=== PATIENT | female | born 1960 | race Caucasian/White ===

== ENCOUNTER 2017-10-17 03:07 | Emergency (ER) | payer OTHER ==
--- OUTSIDE RECORDS SUMMARY | 2017-10-17 03:20 | XMS REPORT ---
:1960 External Reference #:[id number] Author Organization [facility] Address [address] [place] [address] Phone [phone] Care Team Providers Name Role Phone Binta Barrios M.D. Care Team Information University Controller Unavailable Binta Barrios M.D. Primary Care Physician Unavailable Payers Type Date Identification Numbers Payment Subscriber Provider Health Maintenance Effective: Policy Number: [employer] Nap Ann Anaya Organization (O) 05/16/2016 [id number] Pre-Medicare Group Number: [id number] [address] PayID: [id number] [place] [address] Problems Date Description Provider Status Onset: 12/20/2011 Degenerative joint disease of Lisset Jarrell M.D. Active ankle AND/OR foot Onset: 12/20/2011 Hyperlipidemia Lisset Jarrell M.D. Active Onset: 12/20/2011 Tobacco user Lisset Jarrell M.D. Active Onset: 12/20/2011 Uterine leiomyoma Lisset Jarrell M.D. Active Onset: 09/20/2017 Generalized anxiety disorder Binta Barrios M.D. Active Onset: 12/20/2011 Adjustment disorder with Lisset Jarrell M.D. Resolved depressed mood Resolved: 02/19/2015 Family History Date Family Member(s) Problem(s) Comments Father Prostate Disease Father due to IA () Father Coronary Artery Disease (CAD) Father Kidney Disease Father Dementia Father Chronic Obstructive Pulmonary Disease (COPD) Mother due to Lung Cancer () Number of Children 1 child whom she gave up for adoption in the 1970s First Brother Mentally Handicapped First Brother Alcoholism Social History Type Date Description Comments Marital Status Patient is single. Male partner 2009 from multiple medical comorbidities. 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 day as needed Omeprazole Active Capsules DR 40mg 30caps take 1 R12 Binta 018 capsule Denis, by mouth M.D. every morning, 30 minutes before meal Bupropion HCL Active Tablets ER 300mg 30tabs 1 by F41.1 Binta ER (XL) 017 24HR mouth Denis, every day M.DChata F17.210 Aspirin 07/27/[address] 81mg 1 by mouth Unknown every day Valacyclovir HCL Active Tablets 500mg 30ta 1 by mouth Binta bs every day Teodora Barrios Probiotic Active Capsules 250mg 1 by mouth Unknown every day Bupropion HCL ER 12/23/2016 - Hx Tablets ER 150mg take one Leonardo1Chata Evans (SR) 12/23/2016 12HR tablet by 1 RENETTA Goddard mouth twice a day F17.210 Bupropion HCL 12/23/2016 - Hx Tablets ER 150mg 30tabs 1 by mouth F41.1 Binta ER (XL) 04/19/2017 24HR every day Teodora Barrios F17.210 Cyclobenzaprine 07/23/2016 - Hx Tablets 5mg 60tabs take 1 M54.5 Binta HCL 09/20/2017 tablet by Denis, mouth three M.D. times daily as needed Drysol 11/10/2015 - Hx Solution 20% 60ml apply to Chris AChata 06/17/2016 underarms Mika, as needed M.D. Lidocaine 09/08/2015 - Hx Patches 5% 30units apply to [facility] 09/20/2017 heel as [place], twice a M.D. 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 F17.210 Bupropion HCL 02/19/2015 - Hx Tablets ER 150mg 30tabs 1 by mouth F41.1 Binat ER (XL) 04/21/2015 24HR every day Teodora Barrios F17.210 Melatonin 12/27/2013 - Hx Tablets 1 by mouth qhs Unknown 09/20/2017 prn Senna S 12/28/2011 - Hx Tablets 8.6 1 by mouth Unknown 09/20/2017 -50 every day as mg needed Miralax 12/28/2011 - Hx Powder drink 17 grams Unknown 09/20/2017 mixed with 8oz of water qd prn Hydrocodone/Acetam 12/21/2011 - Hx Tablets 5-3 40tabs 1 tabs po q6h Lisset Burnett inophen 02/19/2015 25m as needed samuel Jarrell severe painTeodora caution to sedation/const ipation Multivitamins 12/20/2011 - Hx Tablets 1 po qd [facility] 02/19/2015 [facility] Calcium + D 12/20/2011 - Hx Tablets 120 1 po qd [facility] 02/19/2015 0mg Medicine /10 Associates 00[facility] g Hydrocodone/Acetam 12/20/2011 - Hx Tablets 5-5 45tabs 1-2 po q4h prn Lisset Burnett inophen 12/21/2011 00m samuel Jarrell M.D. Ibuprofen 01/04/2011 - Hx Tablets 800 60tabs 1 po q8 hours Anel Warner 02/19/2015 mg tid with food Teodora Dunaway Tylenol/Codeine #3 01/04/2011 - Hx Tablets 300 50tabs 1-2 po q hs as Cristina 12/20/2011 -30 needed for von Felten, mg pain M.DChata Hydrocodone 03/21/2010 - Hx Tablets 5-5 45tabs 1-2 po q4h prn Cristina Bitartrate/Apap 12/20/2011 00m samuel Levy M.D. Naproxen 03/21/2010 - Hx Tablets 500 40tabs 1 po bid prn Cristina 01/04/2011 mg pain kenya Vasquez M.D. Out Of Work Until 03/21/2010 - Hx out of work Geo F. 09/17/2010 until Teodora Luna 03/25/2010 Cyclobenzaprine 03/19/2010 - Hx Tablets 10m 60tabs 1 po bid. no 728 Anel L. HCL 09/17/2010 g [address] while .85 raquel Dunaway.Lex medicine. Physical Therapy 03/19/2010 - Hx evaluate/treat 728 Anel Warner 09/17/2010 .Billy Mi M.D. arm numbness and tingling. Massage Therapy 03/19/2010 - Hx bilateral 728 Anel Warner 09/17/2010 trapezius .85 ronaldo Dunaway. Teodora Note 01/14/2010 - Hx please issue Cristina 09/17/2010 Jaclyn Varghese M.D. handicap permit until her application is finalized due to foot and breathing prob Drysol 01/01/2010 - Hx Solution 20% 60ml apply to Lisset Burnett 02/19/2015 underarms as shraddha Jarrell M.D. Proair HFA 01/01/2010 - Hx Aerosol 108 1Mdi 2 puffs every Cristina 12/20/2011 (90 4 hours as Gabriela Levy needed for M.DChata e) cough mcg /ac Celexa 01/01/2010 - Hx Tablets 10m 30tabs 1 po qd Cristina 04/03/2010 samuel Levy M.D. Clonazepam 09/25/2009 - Hx Tablets 0.5 20tabs 1-2 po bid as Cristina 04/03/2010 mg needed kenya Vasquez M.D. Protonix 09/09/2008 - Hx Tablets DR 40m Samples 1 po qd Cristina 09/15/2009 samuel Levy M.D. Baby Aspirin 05/22/2008 - Hx Chewtabs 81m 1 PO qd Cristina 09/15/2009 samuel Levy M.D. Wellbutrin XL 05/22/2008 - Hx Tablets ER 150 30tabs 1 po qd Cristina 12/20/2011 24HR mg kenya Vasquez M.D. Vitamin D - Hx Capsules 500 take 1 capsule Unknown (Ergocalciferol) 06/17/2016 00U by mouth once nit weekly for 8 weeks. Alprazolam - Hx Tablets 0.2 1/2 tabs by Unknown 06/17/2016 5mg mouth three times a day as needed anxiety- Dr. Zelaya Ibuprofen - Hx Tablets 800 1 tab by mouth Unknown 09/20/2017 mg every 6 hours as needed pain. take with food Proair HFA - Hx Aerosol 108 2 puffs every Unknown 09/20/2017 (90 4 hours as Bas needed e) mcg /Ac t Amoxicillin - Hx Tablets 500 1 po qid Unknown 07/23/2016 mg Medications Administered in Office Medication Date Status Form Strength Qnty SIG Indications Ordering Provider TB Intradermal Administered Injection Binta Test 016 Teodora Barrios TB Intradermal Administered Injection Unknown Test 007 Immunizations CPT Code Status Date Vaccine Lot # 35776 Given 02/26/2008 DO Not Use Split Influenza Virus Vaccine 36159 Given 12/27/2003 Tdap Tetanus, W Pertussis 92019 Given Unknown Rubella Immunization 02636 Given Unknown Measles Immunization 56697 Given Unknown Mumps Immunization Vital Signs Date Vital Result Comment 09/20/2017 BP Systolic 102 mmHg BP Diastolic 64 mmHg Heart Rate 96 /min Body Temperature 98.2 F Height 60.5 inches 5'0.50" Weight 119.00 lb BMI (Body Mass Index) 22.9 kg/m2 03/30/2017 BP Systolic 100 mmHg BP Diastolic 60 mmHg Heart Rate 80 /min Body Temperature 97.5 F Height 60.5 inches 5'0.50" Weight 125.25 lb BMI (Body Mass Index) 24.1 kg/m2 02/21/2017 BP Systolic 118 mmHg BP Diastolic 68 mmHg Heart Rate 74 /min Body Temperature 97.3 F Height 60.5 inches 5'0.50" Weight 129.38 lb BMI (Body Mass Index) 24.8 kg/m2 12/27/2016 BP Systolic 110 mmHg BP Diastolic 68 mmHg Heart Rate 78 /min Body Temperature 96.4 F Respiratory Rate 16 /min Height 60.5 inches 5'0.50" Weight 135.00 lb BMI (Body Mass Index) 25.9 kg/m2 07/23/2016 BP Systolic 122 mmHg BP Diastolic 76 mmHg Heart Rate 76 /min Body Temperature 98.1 F Respiratory Rate 16 /min Height 60.5 inches 5'0.50" Weight 143.00 lb BMI (Body Mass Index) 27.5 kg/m2 06/17/2016 BP Systolic 110 mmHg BP Diastolic 80 mmHg Heart Rate 76 /min Body Temperature 97.9 F Respiratory Rate 12 /min Height 60.5 inches 5'0.50" Weight 143.00 lb BMI (Body Mass Index) 27.5 kg/m2 09/04/2015 BP Systolic 110 mmHg BP Diastolic 64 mmHg Heart Rate 72 /min Body Temperature 98.0 F Respiratory Rate 16 /min Height 60.5 inches 5'0.50" Weight 157.00 lb BMI (Body Mass Index) 30.2 kg/m2 04/21/2015 BP Systolic 110 mmHg BP Diastolic 60 mmHg Heart Rate 76 /min Respiratory Rate 16 /min Height 60.5 inches 5'0.50" Weight 153.00 lb BMI (Body Mass Index) 29.4 kg/m2 02/19/2015 Heart Rate 66 /min Body Temperature 97.9 F Respiratory Rate 16 /min Height 60.5 inches 5'0.50" Weight 153.38 lb BMI (Body Mass Index) 29.5 kg/m2 12/20/2011 BP Systolic 124 mmHg BP Diastolic 66 mmHg Heart Rate 90 /min Body Temperature 99.0 F Height 60 inches 5'0" Weight 147.00 lb BMI (Body Mass Index) 28.7 kg/m2 01/04/2011 BP Systolic 110 mmHg BP Diastolic 60 mmHg Heart Rate 76 /min Body Temperature 97.7 F Respiratory Rate 20 /min Height 60 inches 5'0" Weight 144.00 lb BMI (Body Mass Index) 28.1 kg/m2 09/17/2010 BP Systolic 94 mmHg BP Diastolic 60 mmHg Heart Rate 84 /min Height 60 inches 5'0" Weight 143.00 lb BMI (Body Mass Index) 27.9 kg/m2 04/03/2010 BP Systolic 122 mmHg BP Diastolic 60 mmHg Heart Rate 84 /min Height 60 inches 5'0" Weight 142.00 lb BMI (Body Mass Index) 27.7 kg/m2 03/21/2010 BP Systolic 122 mmHg BP Diastolic 64 mmHg Heart Rate 96 /min Height 60 inches 5'0" Weight 145.00 lb BMI (Body Mass Index) 28.3 kg/m2 03/19/2010 BP Systolic 120 mmHg BP Diastolic 70 mmHg Heart Rate 72 /min Height 60 inches 5'0" Weight 145.00 lb BMI (Body Mass Index) 28.3 kg/m2 01/01/2010 BP Systolic 122 mmHg BP Diastolic 64 mmHg Heart Rate 72 /min Height 60 inches 5'0" Weight 147.00 lb BMI (Body Mass Index) 28.7 kg/m2 09/15/2009 BP Systolic 114 mmHg BP Diastolic 60 mmHg Heart Rate 90 /min Body Temperature 98.8 F Height 60 inches 5'0" Weight 156.00 lb BMI (Body Mass Index) 30.5 kg/m2 02/17/2009 BP Systolic 110 mmHg BP Diastolic 60 mmHg Heart Rate 78 /min Body Temperature 98.4 F Height 60 inches 5'0" Weight 171.00 lb BMI (Body Mass Index) 33.4 kg/m2 09/09/2008 BP Systolic 122 mmHg BP Diastolic 60 mmHg Heart Rate 84 /min Body Temperature 99.3 F Height 60 inches 5'0" Weight 166.00 lb BMI (Body Mass Index) 32.4 kg/m2 05/22/2008 BP Systolic 120 mmHg BP Diastolic 70 mmHg Heart Rate 80 /min Body Temperature 98.0 F Height 60 inches 5'0" Weight 168.00 lb BMI (Body Mass Index) 32.8 kg/m2 Results Test Date Test Result H/L Range Note Laboratory test finding 02/21/2017 Free T4 1.16 ng/dL 0.75-1.54 LDL, Direct 102 mg/dL 0-130 Complete Blood Count 02/21/2017 WBC 7.0 x10^3/UL 3.6-9.6 RBC 4.70 x10^6/UL 3.90-5.70 HGB 14.3 g/dL 12.1-17.2 HCT 42 % 36-50 MCV 89.0 fL 82.2-97.4 MCH 30.5 pg 27.6-33.3 MCHC 34.2 g/dL 33.0-35.5 RDW 13.6 % 11.6-13.7 PLT 288 x10^3/UL 150-400 MPV 7.6 fL 7.4-10.4 Gran # 5.2 x10^3/UL 1.5-7.2 Lymph# 1.5 x10^3/UL 0.7-4.9 Christian# 0.3 x10^3/UL 0.1-0.9 Gran % 72.4 % 42.2-75.2 Lymph % 22.3 % 20.5-51.1 Christian% 5.3 % 1.7-9.3 Laboratory test finding 02/21/2017 TSH 0.72 mIU/L 0.50-6.00 Comprehensive Metabolic Prof 02/21/2017 Sodium 144 mEq/L 134-149 Potassium 3.9 mEq/L 3.6-5.5 Chloride 105 mEq/L 94-112 Carbon Dioxide 29 mEq/L 21-32 Glucose 112 mg/dL High 70-105 1 BUN 12 mg/dL 6-26 Creatinine 0.8 mg/dL 0.6-1.4 BUN/Creat Ratio 15.0 CALC 8.0-36.0 Calcium 9.6 mg/dL 8.6-10.2 Total Protein 6.9 g/dL 6.4-8.3 Albumin 4.7 g/dL 3.8-5.5 Globulin 2.2 g/dL 2.0-4.8 A/G Ratio 2.1 CALC 0.6-2.3 Alk. Phosphatase 77 U/L 30-110 Alt (SGPT) 11 U/L 7-35 Ast (Sgot) 18 U/L 5-34 Total Bilirubin 0.5 mg/dL 0.2-1.3 GFR Non- >60 ml/min/1.73m^ >=60 GFR >60 ml/min/1.73m^ >=60 Lipid Profile 02/21/2017 Cholesterol 232 mg/dL High 120-200 Triglycerides 295 mg/dL High 30-200 HDL Cholesterol 78 mg/dL 30-85 LDL (Calculated) 95 CALC 0-129 VLDL Cholesterol 59 mg/dL High 0-50 HDL Risk Factor 3.0 CALC 0.0-4.4 Laboratory test finding 02/21/2017 Hemoglobin A1c (Fma) 5.2 % 4.1-5.7 Laboratory test finding 12/27/2016 HCV Antibody <0.1 0.0-0.9 2, 3 s/coratio Comprehensive Metabolic 06/04/2016 Sodium 140 mEq/L 134-149 Prof Potassium 4.6 mEq/L 3.6-5.5 Chloride 112 mEq/L 94-112 Carbon Dioxide 24 mEq/L 21-32 Glucose 103 mg/dL 70-105 BUN 12 mg/dL 6-26 Creatinine 0.8 mg/dL 0.6-1.4 BUN/Creat Ratio 15.0 CALC 8.0-36.0 Calcium 9.7 mg/dL 8.6-10.2 Total Protein 6.8 g/dL 6.4-8.3 Albumin 4.3 g/dL 3.8-5.5 Globulin 2.5 g/dL 2.0-4.8 A/G Ratio 1.7 CALC 0.6-2.3 Alk. Phosphatase 86 U/L 30-110 Alt (SGPT) 13 U/L 7-35 Ast (Sgot) 17 U/L 5-34 Total Bilirubin 0.7 mg/dL 0.2-1.3 GFR Non- >60 ml/min/1.73m^ >=60 GFR >60 ml/min/1.73m^ >=60 Lipid Profile 06/04/2016 Cholesterol 247 mg/dL High 120-200 Triglycerides 149 mg/dL 30-200 HDL Cholesterol 78 mg/dL 30-85 LDL (Calculated) 139 CALC High 0-129 VLDL Cholesterol 30 mg/dL 0-50 HDL Risk Factor 3.2 CALC 0.0-4.4 Complete Blood Count 06/04/2016 WBC 4.6 x10^3/UL 3.6-9.6 RBC 4.75 x10^6/UL 3.90-5.70 HGB 14.2 g/dL 12.1-17.2 HCT 42 % 36-50 MCV 89.0 fL 82.2-97.4 MCH 29.9 pg 27.6-33.3 MCHC 33.8 g/dL 33.0-35.5 RDW 13.7 % 11.6-13.7 PLT 250 x10^3/UL 150-400 MPV 7.2 fL Low 7.4-10.4 Gran # 3.2 x10^3/UL 1.5-7.2 Lymph# 1.2 x10^3/UL 0.7-4.9 Christian# 0.2 x10^3/UL 0.1-0.9 Gran % 67.5 % 42.2-75.2 Lymph % 27.8 % 20.5-51.1 Christian% 4.7 % 1.7-9.3 Laboratory test finding 06/04/2016 TSH 1.82 mIU/L 0.50-6.00 4 Laboratory test finding 04/21/2015 Vitamin D25 49 30-100 Laboratory test finding 09/27/2011 [facility] Lab Test VIT D, 25 HYDRO See Image Report Laboratory test finding 07/13/2011 [facility] Lab Test gfr,vit d,tsh,bun,creat ,phos,ca+,pth inta Comprehensive Metabolic 09/17/2010 Albumin 4.7 g/dL 3.8-5.5 Prof Alk. Phos. 75 U/L 30-110 Alt (SGPT) 8 U/L 7-35 Ast (Sgot) 13 U/L 5-34 BUN 15 mg/dL 6-26 Calcium 9.8 mg/dL 8.6-10.2 Chloride 98 mEq/L 94-112 Creatinine 0.8 mg/dL 0.6-1.4 Carbon Dioxide 30 mEq/L 21-32 Glucose 103 mg/dL 70-105 Sodium 140 mEq/L 134-149 Total Bilirubin 0.6 mg/dL 0.2-1.3 Total Protein 7.2 g/dL 6.3-8.1 Potassium 5.2 mEq/L 3.6-5.5 Globulin 2.5 g/dL 2.0-4.8 A/G Ratio 1.9 Calc 0.6-2.2 BUN/Creat Ratio 18.5 Calc 8.0-36.0 Lipid Profile 09/17/2010 Cholesterol 244 mg/dL High 120-200 HDL 77 mg/dL 30-85 Triglycerides 134 mg/dL 30-200 HDL Risk Factor 3.2 CALC 0.0-4.0 LDL (Calculated) 140 CALC High 0-129 VLDL (Calculated) 27 mg/dL 0-50 Laboratory test 09/17/2010 TSH 0.94 mIU/L 0.50-6.00 finding Laboratory test 11/04/2008 Clotest N^NEGATIVE^KELLY finding Surgical Pathology 11/04/2008 Surgical Pathology 5 <SEE NOTE> Anti Thyroid 09/09/2008 Anti Thyroglobulin AB <20.0 IU/mL 0.0-40.0 Antibodies (CX) Thyroid Peroxidase AB <10.00 IU/mL 0.00-35.00 Laboratory test finding 09/09/2008 TSH 2.63 mIU/L 0.50-6.00 Iron 56 g/dL Low 60-150 6 B12 240 pg/mL 230-1050 Complete Blood Count 09/09/2008 WBC 8.0 x10^3/uL 3.6-9.6 Gran# 6.1 x10^3/uL 1.5-7.2 Gran% 76.4 % High 42.2-75.2 HCT 43 % 36-50 HGB 14.4 g/dL 12.1-17.2 Lymph# 1.7 x10^3/uL 0.7-4.9 Lymph% 21.8 % 20.5-51.1 MCH 27.4 pg Low 27.6-33.3 MCV 81.8 fL Low 82.2-97.4 MCHC 33.5 g/dL 33.0-35.5 Mo# 0.1 x10^3/uL 0.1-0.9 Mo% 1.8 % 1.7-9.3 MPV 8.1 fL 7.4-10.4 PLT 299 x10^3/uL 150-400 RBC 5.25 x10^6/uL 3.90-5.70 RDW 13.2 % 11.6-13.7 Comprehensive Metabolic Prof 09/09/2008 Albumin 4.4 g/dL 3.8-5.5 Alk. Phos. 92 U/L 30-110 Alt (SGPT) 16 U/L 7-35 Ast (Sgot) 21 U/L 5-34 BUN 10 mg/dL 6-26 Calcium 8.6 mg/dL 8.6-10.2 Chloride 98 mEq/L 94-112 Creatinine 0.8 mg/dL 0.6-1.4 Carbon Dioxide 27 mEq/L 21-32 Glucose 97 mg/dL 70-105 Sodium 139 mEq/L 134-149 Total Bilirubin 0.5 mg/dL 0.2-1.3 Total Protein 7.0 g/dL 6.3-8.1 Potassium 3.8 mEq/L 3.6-5.5 Globulin 2.7 g/dL 2.0-4.8 A/G Ratio 1.6 Calc 0.6-2.2 BUN/Creat Ratio 13.1 Calc 8.0-36.0 Laboratory test finding 05/17/2006 [facility] LIPID PANEL See Image Report 1 NON-FASTING 2 1sst 3 Negative: < 0.8 Indeterminate: 0.8 - 0.9 Positive: > 0.9 The CDC recommends that a positive HCV antibody result be followed up with a HCV Nucleic Acid Amplification test (648450). 4 FASTING 5 --- RUN DATE: 11/06/08 [facility] NMI LIVE PAGE 1 RUN TIME: 1431 Specimen Inquiry RUN USER: INTERFACE -- Name: NALINISANTIAGOANN Status: REG REF Re11/04/08 Age/Sex: 47/F Unit#: [id number] Location: [facility] : 56 -- Specimen: [id number] Spec Date: 11/04/[address]: Jeffery gee MD Spec Type: SURGICAL P Received: 11/05/08-1152 Copies to: Cristina goldstein MD SPECIMEN DISTAL DESCENDING COLON AT 40 CM. HISTORY POST-OP DIAGNOSIS: Hiatal hernia otherwise normal EGD; colon polyp, singl e low risk otherwise normal colon and terminal ileum CLINICAL INFORMATION: Iron deficiency anemia, constipation GROSS DESCRIPTION The specimen is received in formalin labelled Ann Anaya, Distal Descending Colon at 40 cm., and consists of multiple fragments of munguia-yellow tissue with the largest one measuring 0.9 x 0.8 x 0.5 cm. Submitted entirely, one cassette. DIAGNOSIS Colon at 40 cm., biopsy: A. Fragments of tubular adenoma. B. No high grade dysplasia or malignancy. Signed Electronically by: MERCEDES GURROLA 11/06/08 1431 -- -- DEPARTMENT OF PATHOLOGY, [address] [place] [address] [facility] Permit #[id number] Betito Dean M.D. Director Mercedes Gurrola M.D. 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 11526 F41.1 E78.5 R63.4 F17.210 M54.5 Office Visit 02/21/2017 1:00p [facility] Office Binta Barrios M.D. 03724 F41.1 E78.5 R63.4 R23.8 E78.1 Office Visit 12/27/2016 5:00p Main Office Binta Barrios M.D. 42372 E78.5 F41.1 R92.2 Office Visit 07/23/2016 10:20a [facility] Binta Barrios M.D. 95191 M54.5 Office Visit 06/17/2016 5:00p Main Office Binta Barrios M.D. 00339 Z12.31 E78.5 F17.210 Z71.6 Z00.01 R21 M77.32 Office Visit 01/02/2016 2:30p [facility] Binta Barrios M.D. 81956 Z11.1 Office Visit 09/04/2015 3:10p [facility] Office Binta Barrios M.D. 69287 M77.32 F41.1 Z71.6 F17.210 Office Visit 04/21/2015 9:00a [facility] Binta Barrios M.D. 17232 E55.9 Z72.0 F41.1 Office Visit 02/19/2015 8:20a [facility] Binta Barrios M.D. 16163 Z00.00 E55.9 Z72.0 F41.1 Office Visit 12/20/2011 6:50p Main Office Lisset Jarrell M.D. 89353 309.0 715.97 272.4 305.1 218.9 Office Visit 01/04/2011 7:40p [facility] Office Cristina Levy M.D. 39458 719.45 311 300.09 Office Visit 09/17/2010 9:20a [facility] Cristina Levy M.D. 52040 311 723.1 496 V17.3 Office Visit 04/03/2010 4:20p [facility] Office Cristina Levy 67086 723.1 M.D. 311 Office Visit 03/21/2010 1:30p Main Office Geo Luna M.D. 75923 723.1 Office Visit 03/19/2010 3:20p [facility] Office Anel Dunaway M.D. 37043 728.85 Office Visit 01/01/2010 2:40p [facility] Office Cristina Levy 94412 496 Teodora 491.21 311 306.3 Office Visit 09/15/2009 8:30p [facility] Office Cristina Levy M.D. 90662 311 Office Visit 02/17/2009 7:00p Main Office Cristina Levy M.D. 50414 281.9 300.4 Office Visit 09/09/2008 5:40p Main Office Cristina Levy M.D. 41197 703.8 780.79 787.20 Office Visit 05/22/2008 10:00a Main Office Cristina Levy M.D. 19047 V70.0 627.2 346.90 Plan of Care Future Appointment(s):10/26/2017 3:00 pm - Binta Barrios M.D. at [facility] Cjpxgs2409/20/2017 - Binta Barrios M.D.Z00.01 Encounter for general adult medical exam w abnormal findingsNew Labs:CBC Electronic-ALL Lab CompaniComp Metabolic- ALL Lab CompaniLipid Panel-ALL Lab CompaniesUa - Non Micro (Fma)TSH (Fma/[facility]/ [facility])Comments:Encourage an active and healthy lifestyle with proper eating habits including fruits, vegetables, 6-8 glasses of water a day and monitoring portion size. Recommend 30 minutes of daily physical activityincluding walking, aerobic exercise, sports, yoga or dance. Any activity is better than no activity.Recommend routine eye and dental exams. Next physical is due in 1-2 years.E78.5 Hyperlipidemia, unspecifiedNew Labs:Lipid ProfileComprehensive Metabolic ProfLANCA[facility] Electronic FmaComments:Goal LDL is <130, HDL >40, Triglycerides <200F41.1 Generalized anxiety disorderNew Medication: Buspirone HCL 5 mgComments:add buspar to help with anxiety ; Reviewed adverse side effects of medication. Advised to call the office if experiencing symptoms. Patient verbalized understanding.Z12.11 Encounter for screening for malignant neoplasm of colonComments:refer for [id number] HeartburnNew Medication:Omeprazole 40 mgComments:trial of omeprazole for symptoms, refer to GI for eval as due for colonoscopy ; minimize alcohol [id number] Abnormal weight lossNew Labs:Free T4CBC Electronic FmaComments:+stress, refer GI for eval , can be anxiety related however need to rule out other causesFollow up:1 moAllComments:~B_~U_Medication Management~b_~u_ Patient Understands medications she's taking? Yes No Are there Barriers to Adherence? Yes No Has the patient been asked about herbal supplements and therapies, and OTC meds? Yes No
--- NOTE | 2017-10-17 03:54 | ED ---
Lydia Swan Julia, scribed for LansdaleKyle MD on 10/17/17 at 0337 . Lower Extremity - HPI Summary HPI Summary: This patient is a 56 year old F presenting to [facility] with a chief complaint of left ankle pain after tripping and rolling her ankle on the stairs last night. She iced and elevated her ankle last night. Today pain and swelling persists Pain is 9/10 in severity. Patient reports history of multiple left ankle injuries. - History of Current Complaint Chief Complaint: EDExtremityLower Stated Complaint: FALL/LT FOOT Time Seen by Provider: 10/17/17 03:20 Hx Obtained From: Patient Mechanism Of Injury: Twisted Onset of Pain: Immediate Onset/Duration: Still Present Pain Intensity: 9 Pain Scale Used: 0-10 Numeric Timing: Constant Location: Is Discrete @ - L ankle Associated Signs And Symptoms: Positive: Negative Aggravating Factor(s): Weight Bearing Alleviating Factor(s): Elevation, Ice - Allergies/Home Medications Allergies/Adverse Reactions: Allergies Allergy/AdvReac Type Severity Reaction Status Date / Time amoxicillin [From Augmentin] Allergy Diarrhea Verified 10/17/17 03:34 clavulanic acid Allergy Diarrhea Verified 10/17/17 03:34 [From Augmentin] Sulfa (Sulfonamide Allergy Rash Verified 10/17/17 03:34 Antibiotics) SEASONAL ENVIRONMENTAL Allergy SNEEZING, Uncoded 10/17/17 03:34 ALLERGIES PMH/Surg Hx/FS Hx/Imm Hx Endocrine/Hematology History: Denies: Hx Diabetes Cardiovascular History: Denies: Hx Hypertension Respiratory History: Reports: Hx Asthma - INHALER PRN GI History: Reports: Hx Gastroesophageal Reflux Disease - OTC [employer], Hx Hiatal Hernia History: Denies: Hx Dialysis, Hx Renal Disease Musculoskeletal History: Reports: Hx Arthritis - BILATERAL FEET Sensory History: Reports: Hx Cataracts - BILATERAL, Hx Contacts or Glasses - GLASSES, Hx Hearing Aid - BILATERAL Opthamlomology History: Reports: Hx Cataracts - BILATERAL, Hx Contacts or Glasses - GLASSES Neurological History: Reports: Hx Migraine - INTERMITTENT - MAYBE ONCE A MONTH - Cancer History Hx Chemotherapy: No Hx Radiation Therapy: No - Surgical History Surgery Procedure, Year, and Place: BILATERAL EAR SURGERY FOR HEARING [place] [facility] [place] BONE SPURS[place] [facility] [place]OSCOPY , [facility], LEEP PROCEDURE Hx Anesthesia Reactions: Yes - B/P DROPPED DURING COLONOSCOPY Infectious Disease History: No Infectious Disease History: Denies: Traveled Outside the [place] in Last 30 Days - Family History Known Family History: Positive: Hypertension - Social History Alcohol Use: Occasionally Substance Use Type: Reports: None Smoking Status (MU): Never Smoked Tobacco Type: Cigarettes Amount Used/How Often: 1/2 PPD Length of Time of Smoking/Using Tobacco: 30 YEARS Have You Smoked in the Last Year: Yes Review of Systems Negative: Fever Positive: Arthralgia - L ankle , Edema All Other Systems Reviewed And Are Negative: Yes Physical Exam - Summary Physical Exam Summary: Appearance: Well-appearing, Well-nourished, lying in bed comfortably Skin: Warm, dry, no obvious rash Eyes: sclera anicteric, no conjunctival pallor ENT: mucous membranes moist, pharynx appears normal Neck: Supple, nontender Respiratory: Clear to auscultation, no signs of respiratory distress Cardiovascular: Normal S1, S2. No murmurs. Normal distal pulses in tibial and radial bilaterally. Abdomen: Soft, nontender, normal active bowel sounds present Musculoskeletal: Strength/ROM Intact, left lateral malleolus tenderness with swelling, negative Cedillo test Neurological: A&Ox3, awake and alert, mentation is normal, speech is fluent and appropriate Psychiatric: affect is normal, does not appear anxious or depressed Triage Information Reviewed: Yes Vital Signs On Initial Exam: Initial Vitals Temp Pulse Resp BP Pulse Ox 97.9 F 86 16 110/48 100 10/17/17 03:10 10/17/17 03:10 10/17/17 03:10 10/17/17 03:10 10/17/17 03:10 Vital Signs Reviewed: Yes Diagnostics - Vital Signs Vital Signs Temp Pulse Resp BP Pulse Ox 10/17/17 03:10 97.9 F 86 16 110/48 100 - Laboratory Lab Statement: Any lab studies that have been ordered have been reviewed, and results considered in the medical decision making process. - Radiology L Ankle XR Radiology Interpretation Completed By: ED Physician - Small avulsion fracture off the distal fibula. Lower Extremity Course/Dx - Diagnoses Provider Diagnoses: Avulsion fracture of ankle Discharge - Sign-Out/Discharge Documenting (check all that apply): Discharge/Admit/Transfer - Discharge Plan Condition: Good Disposition: HOME Patient Education Materials: Ankle Sprain (ED), Avulsion Fracture (ED) Referrals: Binta Barrios MD [Primary Care Provider] - - Billing Disposition and Condition Condition: GOOD Disposition: HOME The documentation as recorded by the Lydia burciaga Julia accurately reflects the service I personally performed and the decisions made by me, Kyle Acuna MD.
[2017-10-17 04:29] VITALS: BP 122/59
--- NOTE | 2017-10-17 08:08 | RAD ---
INDICATION: Left ankle injury. TECHNIQUE: 3 views of the left ankle were obtained. FINDINGS: There is soft tissue swelling present along the anterolateral aspect of the ankle. There are small avulsion fracture fragments which appear to arise from the tips of the lateral and medial malleoli. IMPRESSION: SMALL AVULSION FRACTURE FRAGMENTS ARISING FROM THE MEDIAL AND LATERAL MALLEOLI.
== END 2017-10-17 04:27 | disposition home or self-care (01) ==
LOC: ED 03:07
DX: S82.842A Displaced bimalleolar fracture of left lower leg, initial encounter for closed fracture (principal); X50.9XXA Other and unspecified overexertion or strenuous movements or postures, initial encounter; Y92.9 Unspecified place or not applicable; J45.909 Unspecified asthma, uncomplicated; M19.072 Primary osteoarthritis, left ankle and foot; M19.071 Primary osteoarthritis, right ankle and foot; K21.9 Gastro-esophageal reflux disease without esophagitis; Z87.891 Personal history of nicotine dependence
CPT/HCPCS: 99282